=== PATIENT | female | born 1985 | race Caucasian/White ===

== ENCOUNTER 2021-07-11 12:56 | Emergency (ER) | payer OTHER ==
[2021-07-11] MEDS ORDERED: ZOFRAN4 MG PO (16:19)
== END 2021-07-11 16:22 | disposition home or self-care (01) ==
LOC: ER1 12:56
DX: U07.1 COVID-19 (principal); F17.200 Nicotine dependence, unspecified, uncomplicated; Z90.710 Acquired absence of both cervix and uterus; Z88.0 Allergy status to penicillin
CPT/HCPCS: 99284; U0002